=== PATIENT | male | born 1955 | race Caucasian/White ===

== ENCOUNTER 2016-11-03 12:52 | Emergency (ER) | payer MEDICARE, OTHER ==
[~2016-11-03] VITALS: Ht 182.9 cm; Wt 160.0 kg
[2016-11-03 13:04] VITALS: BP 128/71; PULSE 77; RESP 16; O2SAT 93
--- NOTE | 2016-11-03 13:41 | ED.REPORT ---
HPI-Rash / Abscess Date of Service Nov 03, 2016 ED Provider: History of Present Illness: 59-year-old male here for section under left axilla. Erythema and pain has been increasing over the last 10 days. They state there has been drainage. If history of psoriasis sounds like and has been using triamcinolone cream with no treatment. He also periodically has episodes of yeast underneath the skin folds as well. He has a history of COPD, not having an acute exacerbation now. He uses 2 liters of O2 at home. Denies shortness of breath or chest pain at this time. He moved into town less than a week ago and currently has a plan to be seen in methadone clinic and establish with a PCP. His daughter is helping with this. He has a history of chronic back pain. No other complaints today besides the erythema under his left axilla. 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 (2 weeks) Symptom Duration: Since onset Location: : Axilla Severity: Current: Moderate Severity: Maximum: Moderate Pertinent Negative: Pt denies other symptoms Recent Healthcare: No recent doctor visit Similar Sx Previous: No Past Medical History Past Medical History Notes: dm, copd, htn, cellulitis Review of Systems Basic Review of Systems Hematologic: No bleeding, No bruising Neurologic: NL mental status, No weakness, No numbness Psychiatric: Normal thought content Constitutional: Denies: Chills, Fatigue, Fever Respiratory: Denies: Dyspnea on exertion, Non-productive cough, Pleuritic pain Cardiovascular: Denies: Chest pain, Dyspnea on exertion, Edema GI: Denies: Abdominal pain, Nausea, Vomiting Musculoskeletal: Reports: Back pain Complete sys rev & neg: except as marked. Physical Exam Initial Vital Signs Vital Signs (First) Date Time Temp Pulse Resp B/P Pulse Ox O2 Delivery O2 Flow Rate FiO2 11/03/16 13:04 36.7 77 16 128/71 93 Room Air Initial VS: Reviewed, Vital signs normal Head / Eyes: Atraumatic, Normocephalic, PERRL ENT: Mucous membranes moist, Conjunctiva normal, No scleral icterus Neck: Supple, Non-tender, Full range of motion Respiratory: Breath sounds normal, Clear to auscultation, No respiratory distress Cardiovascular: Regular rate & rhythm, Heart sounds normal, Intact distal pulses Abdomen / GI: Soft, Non-tender, No guarding, No rebound, No distention Extremities: Vascular intact, Neuro intact, No swelling, No tenderness Neurologic: Alert, Oriented, Nonfocal Psychiatric: Mood/affect normal, Behavior normal, Normal thought content General/Constitutional: Awake, Alert, Well appearing Rash / Lesion Notes: Large area of erythema noted in left axilla. 2 open areas of fresh skin with no induration noted underneath. It looks more like scabs were taken off. 1+ axillary lymphadenopathy. Tender area. There is generalized scabbing and small erythematous lesions all over his arms as well. There is a yeasty smell to his skin in general. Head / Eyes: Normocephalic, PERRL Respiratory / Chest: Breath sounds = bilat, No respiratory distress Wheezing / Retractions: Positive: Wheezing expiratory, Wheezing mild Wheezy throughout lung swift patient's denies shortness of breath. History of COPD Cardiovascular: Heart rate NL, Regular rhythm, Heart sounds NL, Peripheral circulation NL Neurologic: Oriented X3, Speech NL, No motor deficits, No sensory deficits Abdomen: Atraumatic, Soft, Non-tender Large abdominal hernia noted Re-Eval/Medical Decision Med Decision/Clinical Course Discussed patient has COPD and wheezes auscultated. Ventolin inhaler at home and is on 2 L oxygen. He is not symptomatic at this time. Discussed treatment for chronic pain with methadone, they have follow-up resources. Discharge & Departure Shift Change Sign-Out Procedures: Results discussed Response to Therapy: Improved Impression: Primary Impression: Cellulitis Site of cellulitis: extremity Site of cellulitis of extremity: axilla Laterality: left Qualified Code: L03.112 - Cellulitis of left axilla Additional Impressions: COPD (chronic obstructive pulmonary disease) COPD type: unspecified COPD Qualified Code: J44.9 - Chronic obstructive pulmonary disease, unspecified Psoriasis Disposition: Home Discharge Condition All VS Reviewed: Yes Condition: Stable Patient Instructions: Cellulitis (ED) Additional Instructions: Take antibiotics as prescribed. Keep area clean and dry and do not use steroid on it. You could try an antifungal in this area and other yeasty areas, this could help with the chronic irritation. Return immediately if the redness and year axilla increases despite the use of antibiotics, he gets fevers or worsening pain. He may follow up here or at the local urgent care as discussed for further breathing issues or needs until he established with a PCP. Referrals: [facility] EDSupervising Provider for APC: Tay Jacob MD, Linnea K ARNP Nov 03, 2016 13:41
[2016-11-03] MEDS ORDERED: CEPH-512 PO (13:59)
[2016-11-03] MEDS ORDERED: SULF1TAB35 PO (14:01)
== END 2016-11-03 14:10 | disposition home or self-care (01) ==
LOC: SED 12:52
DX: L03.112 Cellulitis of left axilla (principal); J44.9 Chronic obstructive pulmonary disease, unspecified; L40.9 Psoriasis, unspecified; E11.9 Type 2 diabetes mellitus without complications; I10 Essential (primary) hypertension